=== PATIENT | female | born 1950 | race Caucasian/White ===

== ENCOUNTER → 2017-04-21 | Outpatient (CLI) | payer OTHER ==
[~2017-04-21] MED LIST: CALC-354 PO; KRIL1000 PO; LEVO75TA5 PO; MISCCAP8 PO; MISCCAP80 PO; MULTTAB58 PO
--- NOTE | 2017-04-21 17:51 | DIAGNOSTIC IMAGING REPORT ---
ABDOMINAL ULTRASOUND, RIGHT UPPER QUADRANT HISTORY: Epigastric pain. COMPARISON: None. FINDINGS: Liver morphology is normal. Several echogenic hepatic lesions are noted. These measure up to 9 mm. There is a 1.5 cm cyst with a few septations within the liver. There is no biliary ductal dilatation. The common bile duct measures 3 mm in caliber. The gallbladder is contracted and suboptimally assessed but no gallstones are identified. There is no gallbladder wall thickening. The pancreatic body is normal. There is no hydronephrosis. IMPRESSION: 1. No gallstones or biliary ductal dilatation identified. Partially contracted gallbladder. 2. Several small echogenic hepatic lesions measuring up to 9 mm. These favor hemangiomas and in the absence of known malignancy are likely benign. A liver protocol CT is recommended for confirmation. Electronically signed by: Travon Chavez M.D. 04/21/2017 5:50 PM Dictated Date/Time: 04/21/2017 5:44 PM
== END ==
LOC: C.ULTR 16:49
PROVIDERS: ATTEND Student in an Organized Health Care Education/Training Program
DX: R10.13 Epigastric pain (principal)

== ENCOUNTER → 2017-05-07 | Outpatient (CLI) | payer OTHER ==
[2017-05-07 17:06] LABS: BASO % 0.3 %; BASO ABS # 0.02 K/uL (0-0.2); EOS % 0.7 %; IG% 0.3 %; LYMPH % 21.5 %; LYMPH ABS # 1.58 K/uL (1.2-3.4); MEAN CELL VOLUME 89.1 fL (80-100); MEAN CORPUSCULAR HEMOGLOBIN 29.2 pg (25-34); MEAN PLATELET VOLUME 9.8 fL (7.4-10.4); MONO % 6.1 %; NEUT % 71.1 %; PLATELET COUNT 273 K/uL (130-400); RED BLOOD COUNT 4.49 M/uL (4.2-5.4); WHITE BLOOD COUNT 7.35 K/uL (4.8-10.8)
[2017-05-07 17:09] LABS: COMPLETE YES; MEAN CORPUSCULAR HGB CONC 32.8 g/dl (32-36)
== END | disposition home or self-care (01) ==
LOC: C.LAB 16:45
PROVIDERS: ATTEND Family Medicine Hospice and Palliative Medicine
DX: K27.9 Peptic ulcer, site unspecified, unspecified as acute or chronic, without hemorrhage or perforation (principal)

== ENCOUNTER → 2017-06-23 | Outpatient (CLI) | payer OTHER ==
--- NOTE | 2017-06-23 15:19 | MAMMOGRAPHY REPORT ---
BILATERAL DIGITAL SCREENING MAMMOGRAM WITH CAD: 06/23/2017 CLINICAL HISTORY: Routine screening. Patient has no complaints. TECHNIQUE: Bilateral CC and MLO views were obtained. Current study was also evaluated with a Computer Aided Detection (CAD) system. COMPARISON: Comparison is made to exams dated: 05/28/2016 mammogram, 05/27/2015 mammogram, 05/22/2014 ma mmogram, 12/12/2013 mammogram, 05/30/2013 mammogram, and 05/12/2013 mammogram - [facility]. BREAST COMPOSITION: There are scattered areas of fibroglandular density in both breasts. FINDINGS: There is stable asymmetry in the medial right breast. Stable asymmetries in the superior l eft breast on the MLO view. No new suspicious mass, architectural distortion or cluster of microcalc ifications is seen. IMPRESSION: ACR BI-RADS CATEGORY 1: NEGATIVE There is no mammographic evidence of malignancy. A 1 year screening mammogram is recommended. The pa tient will receive written notification of the results. Approximately 10% of breast cancers are not detected with mammography. A negative mammographic report should not delay biopsy if a clinically suggestive mass is present. Bessie Land M.D. ay/:06/23/2017 12:44:21 Property Management Accountant: Jenifer LOVE)(Gage), [facility] letter sent: Normal 1/2 BI-RADS Code: ACR BI-RADS Category 1: Negative
== END | disposition home or self-care (01) ==
LOC: C.MAMM 11:17
PROVIDERS: ATTEND Family Medicine
DX: Z12.31 Encounter for screening mammogram for malignant neoplasm of breast (principal)

== ENCOUNTER → 2017-08-13 | Outpatient (CLI) | payer OTHER | END | disposition home or self-care (01) | LOC: C.LAB1850 13:58 | PROVIDERS: ATTEND Internal Medicine Infectious Disease | DX: Z00.00 Encounter for general adult medical examination without abnormal findings (principal) ==

== ENCOUNTER 2017-10-11 20:46 | Emergency (ER) | payer OTHER ==
[~2017-10-11] VITALS: Ht 165.1 cm; Wt 79.7 kg
[2017-10-11 20:50] VITALS: TEMP 36.5; Ht 165.1 cm; Wt 79.7 kg
[2017-10-11] MEDS ORDERED: SODIUM CHLORIDE 0.9% 1000ML 1,000 ML IV STA (21:15)
[2017-10-11 21:22] VITALS: O2SAT 96
[2017-10-11 21:43] LABS: BASO % 0.4 %; BASO ABS # 0.03 K/uL (0-0.2); COMPLETE YES; EOS % 1.4 %; HEMATOCRIT 41.6 % (37-47); IG% 0.1 %; LYMPH ABS # 1.96 K/uL (1.2-3.4); MEAN CELL VOLUME 89.7 fL (80-100); MEAN CORPUSCULAR HEMOGLOBIN 29.1 pg (25-34); MEAN CORPUSCULAR HGB CONC 32.5 g/dl (32-36); MEAN PLATELET VOLUME 9.9 fL (7.4-10.4); MONO % 5.9 %; NEUT % 65.2 %; PLATELET COUNT 264 K/uL (130-400); RED BLOOD COUNT 4.64 M/uL (4.2-5.4); WHITE BLOOD COUNT 7.25 K/uL (4.8-10.8)
[2017-10-11 22:00] LABS: PARTIAL THROMBOPLASTIN RATIO 1.1; PROTHROMBIN TIME (PATIENT) 10.3 SECONDS (9.0-12.0)
[2017-10-11 22:06] LABS: AST/SGOT 18 U/L (15-37); BLOOD UREA NITROGEN 16 mg/dl (7-18); BUN/CREATININE RATIO 17.5 (10-20); CALCIUM 9.2 mg/dl (8.5-10.1); CARBON DIOXIDE 24 mmol/L (21-32); CHLORIDE 107 mmol/L (98-107); CREATININE 0.88 mg/dl (0.60-1.20); GLUCOSE 78 mg/dl (70-99); MAGNESIUM 2.3 mg/dl (1.8-2.4); SODIUM 141 mmol/L (136-145)
[2017-10-11 22:17] LABS: ALKALINE PHOSPHATASE 106 U/L (45-117); ALT/SGPT 24 U/L (12-78); CKMB/CK RATIO 1.6 (0-3.0)
[2017-10-11] MEDS ORDERED: LEVO75TA5 PO (22:54)
[2017-10-11] MEDS ORDERED: MULTTAB58 PO (22:55)
[2017-10-11] MEDS ORDERED: CALC-354 PO (22:56)
[2017-10-11] MEDS ORDERED: MISCCAP80 PO (22:57)
[2017-10-11] MEDS ORDERED: KRIL1000 PO (22:58)
[2017-10-11] MEDS ORDERED: MISCCAP8 PO (23:00)
[2017-10-11 23:51] VITALS: BP 120/75; PULSE 74; O2SAT 98
--- NOTE | 2017-10-12 03:26 | EMERGENCY ROOM VISIT NOTE ---
History Report prepared by Julio: Lucía Leach Under the Supervision of: Dr. Wilder Stafford M.D. First contact with patient: 21:09 Chief Complaint: IRREGULAR HEARTBEAT Stated Complaint: REACTION TO BOWEL PREP, IRREGULAR HEARTBEAT Nursing Triage Summary: see triage note History of Present Illness The patient is a 67 year old female who presents to the Emergency Room with complaints of intermittent heart fluttering beginning 5 hours ago. The patient started doing prep for her colonoscopy which is tomorrow about 5 hours ago. She notes that she got to the Suprep when she started to have palpitations. The patient notes abdominal pain and feeling lightheaded which lasted about an hour. Presently, the patient has a dull headache. The patient has a history of having palpitations when she drinks caffeine. She notes having diarrhea after drinking her prep. The patient has a history of a hysterectomy, tonsillectomy, Lyme's disease, and Lyme carditis. Pt denies LOC, fevers, chills, diaphoresis, visual changes, neck pain, chest pain, breathing difficulties, nausea, vomiting , back pain, melena, hematochezia, urinary symptoms, numbness, weakness, lymphadenopathy, rash, or other complaints. Source of History: patient Onset: 5 hours ago Position: other (heart ) Quality: other (fluttering) Timing: intermittent Associated Symptoms: + headache, + abdominal pain, + diarrhea Review of Systems See HPI for pertinent positives and negatives. A total of ten systems were reviewed and were otherwise negative. Past Medical & Surgical Medical Problems: (1) Lyme carditis (2) Lyme disease (3) S/P hysterectomy Surgical Problems: (1) S/P tonsillectomy Family History Patient reports no known family medical history. Social History Smoking Status: Never Smoker Smokeless Tobacco Use: No Alcohol Use: none Drug Use: none Marital Status: Housing Status: lives with significant other Occupation Status: unemployed Current/Historical Medications Scheduled Calcium Carbonate-Cholecalcife (Caltrate 600+D), 1 TAB PO BID Krill Oil (Krill Oil), 350 MG PO DAILY Levothyroxine Sodium (Levothyroxine Sodium), 75 MCG PO DAILY Misc Natural Products (Tart Marr Advanced), 1,200 MG PO DAILY Multiple Vitamin (Multivitamin), 1 TAB PO DAILY Probiotic Product (Probiotic), 248 MG PO DAILY Allergies Uncoded Allergies: SULFA (Allergy, Mild, rash, 10/11/17) Physical Exam Vital Signs Date Time Temp Pulse Resp B/P (MAP) Pulse Ox O2 Delivery O2 Flow Rate FiO2 10/11/17 23:51 74 18 120/75 98 10/11/17 23:00 71 18 123/73 98 Room Air 10/11/17 22:00 68 18 135/75 98 Room Air 10/11/17 21:25 79 10/11/17 21:22 96 Room Air 10/11/17 20:50 36.5 86 18 191/91 99 Room Air Physical Exam GENERAL: Awake, alert, well-appearing, in no distress HENT: Normocephalic, atraumatic. Oropharynx unremarkable. EYES: Normal conjunctiva. Sclera non-icteric. NECK: Supple. No nuchal rigidity. FROM. No JVD. RESPIRATORY: Clear to auscultation. CARDIAC: Regular rate, normal rhythm. Extremities warm and well perfused. Pulses equal. ABDOMEN: Soft, non-distended. No tenderness to palpation. No rebound or guarding. No masses. RECTAL: Deferred. MUSCULOSKELETAL: Chest examination reveals no tenderness. The back is symmetrical on inspection without obvious abnormality. There is no CVA tenderness to palpation. No joint edema. LOWER EXTREMITIES: Calves are equal size bilaterally and non-tender. No edema. No discoloration. NEURO: Normal sensorium. No sensory or motor deficits noted. SKIN: No rash or jaundice noted. Medical Decision & Procedures Laboratory Results 10/11/17 21:31 Red Blood Count 4.64, Mean Corpuscular Volume 89.7, Mean Corpuscular Hemoglobin 29.1, Mean Corpuscular Hemoglobin Concent 32.5, Mean Platelet Volume 9.9, Neutrophils (%) (Auto) 65.2, Lymphocytes (%) (Auto) 27.0, Monocytes (%) (Auto) 5.9, Eosinophils (%) (Auto) 1.4, Basophils (%) (Auto) 0.4, Neutrophils # (Auto) 4.72, Lymphocytes # (Auto) 1.96, Monocytes # (Auto) 0.43, Eosinophils # (Auto) 0.10, Basophils # (Auto) 0.03 10/11/17 21:31 Test 10/11/17 21:31 White Blood Count 7.25 K/uL (4.8-10.8) Red Blood Count 4.64 M/uL (4.2-5.4) Hemoglobin 13.5 g/dL (12.0-16.0) Hematocrit 41.6 % (37-47) Mean Corpuscular Volume 89.7 fL (80-100) Mean Corpuscular Hemoglobin 29.1 pg (25-34) Mean Corpuscular Hemoglobin Concent 32.5 g/dl (32-36) Platelet Count 264 K/uL (130-400) Mean Platelet Volume 9.9 fL (7.4-10.4) Neutrophils (%) (Auto) 65.2 % Lymphocytes (%) (Auto) 27.0 % Monocytes (%) (Auto) 5.9 % Eosinophils (%) (Auto) 1.4 % Basophils (%) (Auto) 0.4 % Neutrophils # (Auto) 4.72 K/uL (1.4-6.5) Lymphocytes # (Auto) 1.96 K/uL (1.2-3.4) Monocytes # (Auto) 0.43 K/uL (0.11-0.59) Eosinophils # (Auto) 0.10 K/uL (0-0.5) Basophils # (Auto) 0.03 K/uL (0-0.2) RDW Standard Deviation 48.7 fL (36.4-46.3) RDW Coefficient of Variation 14.9 % (11.5-14.5) Immature Granulocyte % (Auto) 0.1 % Immature Granulocyte # (Auto) 0.01 K/uL (0.00-0.02) Prothrombin Time 10.3 SECONDS (9.0-12.0) Prothromb Time International Ratio 1.0 (0.9-1.1) Activated Partial Thromboplast Time 29.0 SECONDS (21.0-31.0) Partial Thromboplastin Ratio 1.1 Anion Gap 9.0 mmol/L (3-11) Est Creatinine Clear Calc Drug Dose 62.9 ml/min Estimated GFR () 77.7 Estimated GFR (Non- 67.0 BUN/Creatinine Ratio 17.5 (10-20) Calcium Level 9.2 mg/dl (8.5-10.1) Magnesium Level 2.3 mg/dl (1.8-2.4) Total Bilirubin 0.4 mg/dl (0.2-1) Direct Bilirubin 0.1 mg/dl (0-0.2) Aspartate Amino Transf (AST/SGOT) 18 U/L (15-37) Alanine Aminotransferase (ALT/SGPT) 24 U/L (12-78) Alkaline Phosphatase 106 U/L (45-117) Total Creatine Kinase 115 U/L (26-192) Creatine Kinase MB 1.8 ng/ml (0.5-3.6) Creatine Kinase MB Ratio 1.6 (0-3.0) Troponin I < 0.015 ng/ml (0-0.045) Total Protein 7.6 gm/dl (6.4-8.2) Albumin 4.1 gm/dl (3.4-5.0) Thyroid Stimulating Hormone (TSH) 1.840 uIu/ml (0.300-4.500) Laboratory results reviewed by me Medications Administered Medications (Trade) Dose Ordered Sig/Hira Route Start Time Stop Time Status Last Admin Dose Admin Sodium Chloride 1,000 ml @ 125 mls/hr Q8H STAT IV 10/11/17 21:15 10/12/17 00:04 DC 10/11/17 21:50 125 MLS/HR ECG Indication: palpitations Rate (beats per minute): 77 Rhythm: sinus with SA Findings: no acute ischemic change, no ectopy ED Course 2114: Ordered Sodium Chloride 1000 ml @ 125 mls/hr IV. 0: The patient was evaluated in room B2. A complete history and physical exam was performed. 2322: I updated the patient on her test results she is resting comfortably. 2333: I reevaluated the patient. Discussed results and discharge instructions: She verbalized understanding and agreement. The patient is ready for discharge. Medical Decision Triage Nursing notes reviewed. The patient's presentation and history were concerning for palpitations. Etiologies such as ectopy, cardiac dysrhythmia, electrolyte abnormality, thyroid dysfunction, pulmonary embolism, infection, gastrointestinal, as well as others were entertained. The patient was evaluated. Clinically she was doing well. She had a normal ECG. Monitoring did not reveal any significant abnormalities. She notes more significant symptoms prior to ED arrival. Her blood work was unremarkable. She was monitored for an extended period and had no dysrhythmia or ectopy issues noted. The patient was feeling much better on reassessment and approved felt basically asymptomatic. I discussed conservative management with the patient. She is concerned about continuing her prep and given the timeframe she would not be able to complete this before her scheduled procedure in the morning. I told her to hold and contact her primary office as well as her cloth handler for further direction regarding the current issue. I gave my usual and customary discussion regarding this issue. By the evaluation outlined above other emergent etiologies such as those listed in the differential, as well as others, were deemed relatively unlikely. The patient was educated about the findings as listed above. All questions were answered and the patient was pleased with the treatment. Return instructions were outlined and the patient was discharged in stable condition. The patient was referred to her PCP and GI for follow-up for a recheck of the current condition. Medication Reconcilliation Current Medication List: was personally reviewed by me Blood Pressure Screening Patient's blood pressure: Normal blood pressure Impression Primary Impression: Palpitations Scribe Attestation The scribe's documentation has been prepared under my direction and personally reviewed by me in its entirety. I confirm that the note above accurately reflects all work, treatment, procedures, and medical decision making performed by me. Departure Information Dispostion Home / Self-Care Referrals Joy Casneco M.D. (PCP) Forms HOME CARE DOCUMENTATION FORM, IMPORTANT VISIT INFORMATION Patient Instructions My [facility] Additional Instructions Hold any gastroenterology prep and contact your specialist in the morning for further direction. Rest and drink plenty of fluids as tolerated. Continue current medications. Resume normal activities once your symptoms resolve. Eat a heart healthy, low fat, low cholesterol diet. Return to the ER immediately for passing out, chest pain, abdominal pain, vomiting, fevers, difficulty breathing, worsening of your condition, or as needed. Follow up with your primary physician in one to 2 days for a recheck of your current condition.
== END 2017-10-11 23:52 | disposition home or self-care (01) ==
LOC: C.EDB 20:47
DX: R00.2 Palpitations (principal); Z90.710 Acquired absence of both cervix and uterus; Z90.89 Acquired absence of other organs

== ENCOUNTER → 2018-07-07 | Outpatient (CLI) | payer OTHER ==
[2018-07-07 13:01] LABS: BASO % 0.3 %; BASO ABS # 0.02 K/uL (0-0.2); EOS ABS # 0.12 K/uL (0-0.5); HEMOGLOBIN 13.6 g/dL (12.0-16.0); LYMPH ABS # 1.66 K/uL (1.2-3.4); MEAN CELL VOLUME 90.7 fL (80-100); MEAN CORPUSCULAR HEMOGLOBIN 28.7 pg (25-34); MEAN CORPUSCULAR HGB CONC 31.6 g/dl (32-36); MEAN PLATELET VOLUME 10.5 fL (7.4-10.4); MONO % 4.9 %; MONO ABS # 0.29 K/uL (0.11-0.59); NEUT % 64.8 %; NEUT ABS # 3.83 K/uL (1.4-6.5); PLATELET COUNT 285 K/uL (130-400); RED CELL DISTRIBUTION WIDTH CV 14.7 % (11.5-14.5); WHITE BLOOD COUNT 5.92 K/uL (4.8-10.8)
== END | disposition home or self-care (01) ==
LOC: C.LAB1850 11:52
PROVIDERS: ATTEND Internal Medicine Infectious Disease
DX: A69.20 Lyme disease, unspecified (principal)

== ENCOUNTER 2025-06-28 14:14 | Observation (INO) ==
[2025-06-28 16:03] LABS: Hematocrit (blood only) 39.7 % (37.0-47.0); Hemoglobin 13.0 g/dl (12.0-16.0); Immature Granulocytes # (auto) 0.03 K/uL (0.01-0.20); Immature Granulocytes % (auto) 0.3 %; Mean Corpuscular Hemoglobin 29.1 pg (25.0-34.0); Mean Corpuscular Volume 89.0 fL (80.0-100.0); Platelet Count 293 K/uL (130-400); RDW Standard Deviation 45.1 fL (36.4-46.3); Red Blood Count 4.46 M/uL (4.20-5.40); White Blood Count 10.18 K/ul (4.8-10.8)
[2025-06-28 16:06] LABS: Appearance Urine Clear (Clear); Bacteria Urine Automated None Seen (None Seen); Cast Urine Automated 0-2 /lpf (0-2); Epithelial Cell Urine Auto 0-2 /hpf (0-2); Glucose Urine UA Negative (Negative); RBC Urine Automated 0-2 /hpf (0-2)
[2025-06-28 16:20] LABS: Alanine Aminotransferase 7.0 U/L (7-52); Albumin Globulin Ratio 1.3 (0.9-2); Alkaline Phosphatase 120.0 U/L (34-104); Anion Gap 9.0 (3-11); Bilirubin,Total 0.5 mg/dl (0.2-1.0); Blood Urea Nitrogen 26.0 mg/dl (6-23); Calcium 10.2 mg/dl (8.6-10.3); Carbon Dioxide 24.0 mmol/L (21-32); Chloride 110.0 mmol/L (98-107); Creatinine Clr Calc Pharmacy 23.5 ml/min; Globulin 3.5 gm/dl (2.5-4.0); Glucose 103.0 mg/dl (70-99(Fasting)); Potassium 4.4 mmol/L (3.5-5.1); Sodium 143.0 mmol/L (136-145); Total Protein 7.9 gm/dl (6.0-8.3)
--- NOTE | 2025-06-28 16:40 | Emergency Department Note ---
History of Present Illness General Chief complaint: Illness Stated complaint: NAUSEA ABNORNAL WEIGHT LSS DEHYDRATION Time Seen by Provider: 06/28/25 16:15 History of Present Illness Provider complaint: Nausea Onset (ago): week(s) 3 Maximum Pain Intensity: 5 74-year-old female presents emergency department for nausea. Patient reports she has been having nausea for the last 3 weeks. She denies any vomiting. She reports constipation no diarrhea. She reports some mild diffuse abdominal pain. No fevers. No chest pain or difficulty breathing. Patient reports she was in the emergency department last week and got some fluids and Zofran. She states that Zofran helped her nausea but made her more constipated. No hematuria dysuria melena or hematochezia. Home Medications Medication Instructions Recorded Confirmed Type calcium 600 mg (as carbonate)-vit 0 tab PO BID 09/13/18 06/28/25 History D3 20 mcg (800 unit) chewable tablet (Caltrate plus D) lactobacillus combination no.4 3 3,000 mmu cells PO QAM 09/13/18 06/28/25 History billion cell capsule (Probiotic) levothyroxine 75 mcg capsule 75 mcg PO QAM 09/13/18 06/28/25 History multivitamin 1 tab PO QAM PRN during winter 09/13/18 06/28/25 History hydroxyzine HCl 25 mg tablet 25 mg PO TID PRN anxiety #14 tabs 10/21/20 06/28/25 Rx doxycycline monohydrate 100 mg 100 mg PO BID 03/19/24 06/28/25 History capsule fluoxetine 20 mg capsule (Prozac) 20 mg PO DAILY 06/28/25 06/28/25 History losartan 25 mg tablet 12.5 mg PO HS 06/28/25 06/28/25 History omeprazole 40 mg capsule,delayed 40 mg PO BID 06/28/25 06/28/25 History release paroxetine HCl 20 mg tablet (Paxil) 20 mg PO DAILY 06/28/25 06/28/25 History Allergies Allergy/AdvReac Type Severity Reaction Status Date / Time sulfamethoxazole Allergy Intermediate BLOOD IN Verified 03/19/24 15:33 [From Bactrim] URINE/HEADACHE trimethoprim [From Bactrim] Allergy Intermediate BLOOD IN Verified 03/19/24 15:33 URINE/HEADACHE Past Med/Surg History Problem List (Updated 06/28/25 @ 19:17 by Christian Paris MD) Generalized anxiety disorder (Chronic) Hypothyroidism (Chronic) Hypertension (Chronic) Pyuria (Acute) Intractable nausea (Acute) Acute kidney injury (Acute) Medical History Melanoma Lyme carditis Lyme disease Prediabetes History of skin cancer TOP OF RIGHT FOOT History of anemia Endometriosis Surgical History History of breast biopsy RADIAL SCARRING H/O skin graft SKIN CANCER AND LYMPH NODES REMOVED History of bilateral tubal ligation History of total knee replacement LEFT History of esophagogastroduodenoscopy (EGD) History of colonoscopy History of total abdominal hysterectomy and bilateral salpingo-oophorectomy History of appendectomy History of tooth extraction History of tonsillectomy History of adenoidectomy History of cataract surgery RT Family History (Updated 06/28/25 @ 18:56 by Brandon Arriaga DO) Mother Melanoma Other Family history non-contributory No family history of adverse response to anesthesia Social History Smoking Status: Never smoker Second Hand Exposure: No; Do You Dip or Chew Tobacco: No; Hx Alcohol Use: No Hx Substance Use: No Preferred Language: Italian Communication Ability: Effective International Student Counselor Required: No Beliefs That Will Affect Care: None Current Living Situation: Spouse Feels Safe at Home: Yes Assistive Devices: Glasses Physical Exam Vital Signs Vital Signs - 24 hr 06/28/25 14:18 06/28/25 16:43 Temperature 36.2 C L Temperature Source Temporal Artery Scan Pulse Rate 84 68 Respiratory Rate 20 Respiratory Effort / Characteristics Non-Labored Respiratory Depth Normal Blood Pressure 165/82 H Blood Pressure Mean 109 Pulse Oximetry 96 Oxygen Delivery Method Room Air Sepsis Recent Fever Within 48 Hours No Sepsis New/Unexplained Change in Mental Status No Sepsis Action Taken by Nursing No Action Required Physical Exam GENERAL: oriented to person, place, and time. appears well-developed and well- nourished. HENT: Exam performed. - Head: Normocephalic and atraumatic. EYES: Conjunctivae and EOM are normal. Right eye exhibits no discharge. Left eye exhibits no discharge. No scleral icterus. NECK: Normal range of motion. Neck supple. No JVD present. CV: Normal rate, regular rhythm, normal heart sounds and intact distal pulses. There is no peripheral edema. Palpable radial pulses bue. PULM/CHEST: Effort normal and breath sounds normal. No respiratory distress. No stridor. no wheezes. no rales. ABD: The abdomen is soft. There is no tenderness. NEURO: Motor and sensation grossly intact. SKIN: Skin is warm and dry. He is not diaphoretic. PSYCH: normal mood and affect. Behavior is normal. Judgment and thought content normal. Course Course 1615: The patient was evaluated in room A12. A complete history and physical exam was performed Cardiac monitoring: An order was placed for continuous cardiac monitoring. The monitor shows a rate of 70 with sinus rhythm interpreted by me Patient requesting nausea medication but not Zofran stating that makes her constipated. 1740: Vital signs stable. Imaging is unremarkable. Labs are significant for worsening creatinine up to 2.04. Patient will be admitted to the hospitalist team for LJ. Administered Medications Discontinued Medications Diphenhydramine HCl (Diphenhydramine 50 Mg/Ml Vial) 25 mg IV NOW STA Stop: 06/28/25 16:33 Last Admin: 06/28/25 17:21 Dose: 25 mg Documented By: TRISHM Sodium Chloride (Nss) 1,000 mls @ 999 mls/hr IV .Q1H1M ONE Stop: 06/28/25 17:19 Last Infusion: 06/28/25 18:59 Dose: Infused Documented By: Admin: 06/28/25 17:21 Dose: 999 mls/hr Documented By: TRISHM Labetalol HCl (Labetalol Hcl Iv 5 Mg/Ml 20ml) 10 mg IV NOW ONE Stop: 06/28/25 18:49 Last Admin: 06/28/25 19:05 Dose: 10 mg Documented By: DANN Metoclopramide HCl (Metoclopramide Hcl Inj 5 Mg/Ml 2 Ml Vial) 5 mg IV ONE ONE Stop: 06/28/25 16:33 Last Admin: 06/28/25 17:21 Dose: 5 mg Documented By: TDM Ondansetron HCl (Ondansetron Inj 2 Mg/Ml 2 Ml Vial) 4 mg IV NOW STA Stop: 06/28/25 16:20 Last Admin: 06/28/25 17:25 Dose: Not Given Documented By: TDM Medical Decision Making Medical Records Attestation: I reviewed the patient's medical records. Medical records reviewed. Patient was seen in the emergency department 9 days ago. During that visit the patient's white blood cell count was normal high- sensitivity troponin was normal creatinine was 1.78 which does appear to be double her baseline urinalysis was unremarkable. No imaging was conducted. Patient was given IV fluids and Zofran and discharged home. Laboratory Data Attestation: I reviewed the patient's lab results. 06/28/25 15:45 06/28/25 15:45 Lab Results 06/28/25 Range/Units 15:45 WBC 10.18 (4.8-10.8) K/ul RBC 4.46 (4.20-5.40) M/uL Hgb 13.0 (12.0-16.0) g/dl Hct 39.7 (37.0-47.0) % MCV 89.0 (80.0-100.0) fL MCH 29.1 (25.0-34.0) pg MCHC 32.7 (32.0-36.0) g/dL RDW Std Deviation 45.1 (36.4-46.3) fL RDW Coeff of Slime 13.8 (11.5-14.5) % Plt Count 293 (130-400) K/uL MPV 10.4 (9.4-12.4) fL Immature Gran % (Auto) 0.3 % Neut % (Auto) 81.8 % Lymph % (Auto) 12.2 % [place] % (Auto) 4.6 % Eos % (Auto) 0.8 % Baso % (Auto) 0.3 % Neut # (Auto) 8.33 H (1.40-6.50) K/uL Lymph # (Auto) 1.24 (1.20-3.40) K/uL [place] # (Auto) 0.47 (0.11-0.59) K/uL Eos # (Auto) 0.08 (0.00-0.50) K/uL Baso # (Auto) 0.03 (0.00-0.20) K/uL Immature Gran # (Auto) 0.03 (0.01-0.20) K/uL Sodium 143 (136-145) mmol/L Potassium 4.4 (3.5-5.1) mmol/L Chloride 110 H (98-107) mmol/L Carbon Dioxide 24 (21-32) mmol/L Anion Gap 9 (3-11) BUN 26 H (6-23) mg/dl Creatinine 2.04 H (0.6-1.2) mg/dl Est Cr Clr Drug Dosing 23.5 ml/min eGFR 24.82 BUN/Creatinine Ratio 12.7 (10-20) Glucose 103 H (70-99(Fasting)) mg/dl Calcium 10.2 (8.6-10.3) mg/dl Magnesium 1.8 (1.7-2.4) mg/dl Total Bilirubin 0.5 (0.2-1.0) mg/dl AST 11 L (13-39) U/L ALT 7 (7-52) U/L Alkaline Phosphatase 120 H (34-104) U/L Total Protein 7.9 (6.0-8.3) gm/dl Albumin 4.4 (3.4-5.0) gm/dl Globulin 3.5 (2.5-4.0) gm/dl Albumin/Globulin Ratio 1.3 (0.9-2) Urine Color Yellow Urine Appearance Clear (Clear) Urine pH 6.0 (4.5-7.5) Ur Specific [place] 1.010 (1.000-1.030) Urine Protein Trace H (Negative) Urine Glucose (UA) Negative (Negative) Urine Ketones Negative (Negative) Urine Blood Negative (Negative) Urine Nitrite Negative (Negative) Urine Bilirubin Negative (Negative) Urine Urobilinogen Negative (Negative) Ur Leukocyte Esterase Trace H (Negative) Urine WBC (Auto) 6-10 H (0-5) /hpf Urine RBC (Auto) 0-2 (0-2) /hpf U Hyaline Cast (Auto) 0-2 (0-2) /lpf U Epithel Cells (Auto) 0-2 (0-2) /hpf Urine Bacteria (Auto) None Seen (None Seen) Urine Comment Imaging Data Radiologist's Impression: Abdomen/Pelvis CT 06/28/25 16:22 EXAMINATION: Abdomen and pelvis CT without CLINICAL HISTORY: Patient states I was in last I believe for fluids. I have had weight loss, no appetite. Denies abdominal pain. PRIORS: None TECHNIQUE: Contiguous axial images were obtained through the abdomen and pelvis without the use of intravenous contrast. Sagittal and coronal reformations are supplied. FINDINGS: A trace pericardial effusion is present in the [id number]. No abnormality in the lung bases. Evaluation of solid organs is limited without the use of intravenous contrast. Allowing for this, the noncontrast enhanced liver shows multiple scattered low-attenuation lesions, not further characterized. The gallbladder, pancreas, spleen, under distended stomach, adrenals, aorta and IVC are morphologically unremarkable. Moderate atherosclerotic disease of the abdominal aorta. Kidneys are symmetric with no obstructing calculus or hydronephrosis. Urinary bladder distends normally. No bowel obstruction. Large amount of formed stool in the colon. Mild diverticulosis of the descending colon. No ascites, adenopathy or extraluminal gas. Uterus is not identified. In bone windows, moderate osseous demineralization with moderate to advanced facet hypertrophic changes at L3-L4 through L5-S1. IMPRESSION: 1. No CT evidence of an acute abdominal or pelvic abnormality. 2. Trace pericardial effusion at the edge of the [id number]. 3. Mild descending colon diverticulosis. Electronically signed by Lainey Brower 06-28-2025 5:33 PM ECG Data Attestation: I personally reviewed and interpreted this ECG as follows: Rate (beats per minute): 70 Rhythm: + normal sinus ECG Intervals/blocks: + Normal QRS, + Normal KS and + Normal QT-c ECG ST segments: + Normal ST segments MDM Narrative 1615: The patient was evaluated in room A12. A complete history and physical exam was performed Cardiac monitoring: An order was placed for continuous cardiac monitoring. The monitor shows a rate of 70 with sinus rhythm interpreted by me Patient requesting nausea medication but not Zofran stating that makes her constipated. 1740: Vital signs stable. Imaging is unremarkable. Labs are significant for worsening creatinine up to 2.04. Patient will be admitted to the hospitalist team for LJ. Impression & Plan Acute kidney injury Discharge Plan Visit Data Chief Complaint: Illness Stated Complaint: NAUSEA ABNORNAL WEIGHT LSS DEHYDRATION ED Provider: Christian Paris Discharge Problem: Acute kidney injury Patient Disposition: Being Evaluated by Hospitalist Condition: Fair
[2025-06-28 17:12] LABS: Magnesium 1.8 mg/dl (1.7-2.4)
[2025-06-28] MEDS: SODIUM CHLORIDE 0.9% 1,000 ML IV ONE (17:21)
[2025-06-28] MEDS: METOCLOPRAMIDE HCL INJ 5 MG/ML 2 ML VIAL IV ONE (17:21)
[2025-06-28] MEDS: diphenhydrAMINE 50 MG/ML VIAL IV STA (17:21)
[2025-06-28] MEDS: ONDANSETRON INJ 2 MG/ML 2 ML VIAL IV STA (17:25)
--- NOTE | 2025-06-28 17:33 | CT Scan Report ---
EXAMINATION: Abdomen and pelvis CT without CLINICAL HISTORY: Patient states I was in last I believe for fluids. I have had weight loss, no appetite. Denies abdominal pain. PRIORS: None TECHNIQUE: Contiguous axial images were obtained through the abdomen and pelvis without the use of intravenous contrast. Sagittal and coronal reformations are supplied. FINDINGS: A trace pericardial effusion is present in the [id number]. No abnormality in the lung bases. Evaluation of solid organs is limited without the use of intravenous contrast. Allowing for this, the noncontrast enhanced liver shows multiple scattered low-attenuation lesions, not further characterized. The gallbladder, pancreas, spleen, under distended stomach, adrenals, aorta and IVC are morphologically unremarkable. Moderate atherosclerotic disease of the abdominal aorta. Kidneys are symmetric with no obstructing calculus or hydronephrosis. Urinary bladder distends normally. No bowel obstruction. Large amount of formed stool in the colon. Mild diverticulosis of the descending colon. No ascites, adenopathy or extraluminal gas. Uterus is not identified. In bone windows, moderate osseous demineralization with moderate to advanced facet hypertrophic changes at L3-L4 through L5-S1. IMPRESSION: 1. No CT evidence of an acute abdominal or pelvic abnormality. 2. Trace pericardial effusion at the edge of the [id number]. 3. Mild descending colon diverticulosis. Electronically signed by Lainey Brower 06-28-2025 5:33 PM
[2025-06-28] MEDS: LABETALOL HCL IV 5 MG/ML 20ML IV ONE (19:05)
--- NOTE | 2025-06-28 19:05 | History & Physical Report ---
Date of Service June 28, 2025 Assessment & Plan (1) Acute kidney injury: (2) Intractable nausea: (3) Pyuria: Plan In summary this is a 74-year-old female who presents with persistent nausea, unintentional weight loss consequential of poor oral intake, and early satiety admitted for progressive creatinine rise concerning for an acute kidney injury #Acute kidney injury Baseline normal renal function, presents with progressive elevation with current measure 2.07; currently nonoliguric; no notable electrolyte or acid-base derangements on initial laboratory assessment; initial urinalysis is relatively unremarkable except for noted pyuria without evidence of infection nor associated symptoms; unclear if this is truly acute, PTH is pending to determine if there is a degree of chronicity associated with her kidney injury; additional urine studies have been ordered including urine osmolality and random sodium; A1c and TSH are currently pending as well -Nurse to notify attending of UOP below goal of 0.5 mL/kg/hour -Intake and output measures every shift -Follow daily RFP #Persistent nausea with early satiety // Unintentional weight loss Unclear cause at this time; patient does have a history of recurrent melanoma, may be a precipitant cause of an intermittent outlet obstruction though unlikely based on CT scan obtained by the emergency department provider; they do have some scattered stool cumulation throughout the colon which is unusual considering that their poor oral intake, constipation may be playing a particular role; there is a fair amount of substance within the stomach, more than what would be expected considering the patient's oral intake over the past 24 hours which was only a piece of toast in the morning on 06/28 Pending gastric emptying study #Pyuria Present on admission; no associated symptoms, may be associated with the patient's primary cause of their acute kidney injury, though further testing is pending as detailed above; a reflex culture was performed by microbiology, pending at this time #Hypertension Chronic condition; will hold losartan during patient's hospitalization given their acute kidney injury; if persistently hypertensive during the hospitalization, an alternative antihypertensive may need to be initiated #Hypothyroidism Chronic condition; continue home medication DVT PPx: Start heparin 5000 U SQ every 12 hours History of Present Illness Chief Complaint: Persistent nausea, early satiety, unintentional weight loss Primary Care Provider: FEDERICO Cortes Ms. 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 The patient states that this has been ongoing for approximately 4 weeks with an initial rapid progression of their symptoms and now a plateaued state. They endorse difficulty tolerating any oral intake with significant nausea but have had no episodes of emesis. They deny any associated fevers, chills, abdominal distention, increased frequency of eructation or passing flatus. They do note decreased frequency of their bowel movements as this condition has progressed however there has been no change in the consistently of their stool. there is also been no significant change in their urinary frequency nor the quality of their urine. They did recently moved to a new home, which did precede the onset of the symptoms however the patient notes they have moved many times previously without any associated symptoms. This was a local moved, and other than this there has been no recent travel nor established exposures. The patient was started on doxycycline by their PCP the week of 06/24 due to a positive Lyme titer, though this is not available for review today. The patient does note that their symptoms have neither worsened nor improved since initiation of doxycycline. Allergies Allergy/AdvReac Type Severity Reaction Status Date / Time sulfamethoxazole Allergy Intermediate BLOOD IN Verified 03/19/24 15:33 [From Bactrim] URINE/HEADACHE trimethoprim [From Bactrim] Allergy Intermediate BLOOD IN Verified 03/19/24 15:33 URINE/HEADACHE Home Medications Medication Instructions Recorded Confirmed Type calcium 600 mg (as carbonate)-vit 0 tab PO BID 09/13/18 06/28/25 History D3 20 mcg (800 unit) chewable tablet (Caltrate plus D) lactobacillus combination no.4 3 3,000 mmu cells PO QAM 09/13/18 06/28/25 History billion cell capsule (Probiotic) levothyroxine 75 mcg capsule 75 mcg PO QAM 09/13/18 06/28/25 History multivitamin 1 tab PO QAM PRN during winter 09/13/18 06/28/25 History hydroxyzine HCl 25 mg tablet 25 mg PO TID PRN anxiety #14 tabs 10/21/20 06/28/25 Rx doxycycline monohydrate 100 mg 100 mg PO BID 03/19/24 06/28/25 History capsule fluoxetine 20 mg capsule (Prozac) 20 mg PO DAILY 06/28/25 06/28/25 History losartan 25 mg tablet 12.5 mg PO HS 06/28/25 06/28/25 History omeprazole 40 mg capsule,delayed 40 mg PO BID 06/28/25 06/28/25 History release paroxetine HCl 20 mg tablet (Paxil) 20 mg PO DAILY 06/28/25 06/28/25 History Past Med/Surg History Problem List Generalized anxiety disorder (Chronic) Hypothyroidism (Chronic) Hypertension (Chronic) Pyuria (Acute) Intractable nausea (Acute) Acute kidney injury (Acute) Medical History Melanoma Lyme carditis Lyme disease Prediabetes History of skin cancer TOP OF RIGHT FOOT History of anemia Endometriosis Surgical History History of breast biopsy RADIAL SCARRING H/O skin graft SKIN CANCER AND LYMPH NODES REMOVED History of bilateral tubal ligation History of total knee replacement LEFT History of esophagogastroduodenoscopy (EGD) History of colonoscopy History of total abdominal hysterectomy and bilateral salpingo-oophorectomy History of appendectomy History of tooth extraction History of tonsillectomy History of adenoidectomy History of cataract surgery RT Family History (Updated 06/28/25 @ 18:56 by Brandon Arriaga DO) Mother Melanoma Other Family history non-contributory No family history of adverse response to anesthesia Social History Smoking Status: Never smoker Second Hand Exposure: No; Do You Dip or Chew Tobacco: No; Hx Alcohol Use: No Hx Substance Use: No Preferred Language: Occitan Communication Ability: Effective Reproduction Technician Required: No Beliefs That Will Affect Care: None Current Living Situation: Spouse Feels Safe at Home: Yes Assistive Devices: Glasses Review of Systems Review of Systems: Remaining review of constitutional, pulmonary, cardiovascular, gastrointestinal, genitourinary, musculoskeletal, neurologic, and integumentary systems was unremarkable except for pertinent positive and negative findings noted in the HPI above. Physical Exam Physical Exam: General: Adult female in no acute distress Vital Signs: reviewed HEENT: atraumatic, normocephalic; pupils equally round reactive to light; extraocular motions intact; mucous membranes moist Neck: no noted hepatojugular reflux nor flattening of the jugular veins Pulmonary: symmetric chest wall excursion; clear to auscultation bilaterally Cardiovascular: regular rate and rhythm without murmurs, rubs, or gallops; S1 and S2 normal; bilateral radial and posterior tibial pulse 2+; trace bilateral lower extremity edema distal to mid leg Gastrointestinal: soft, nondistended; normal bowel sounds present throughout all quadrants; nontender to superficial and deep palpation throughout the entire abdomen; no notable organomegaly nor peritoneal findings Neurologic: CN II-XII grossly intact; no discernible focal weakness nor paresthesias Skin: normal skin turgor; multiple prior surgical sites for melanoma excision including Mohs procedure on the anterior chest wall Results & Data Results & Data Vital Signs (Past 12 Hours) Vital Signs Temp Pulse Pulse Resp BP BP Pulse Ox 06/28/25 18:15 70 22 162/92 H 97 06/28/25 16:43 68 06/28/25 14:18 36.2 C L 84 20 165/82 H 96 O2 Del Method 06/28/25 18:15 Room Air 06/28/25 16:43 06/28/25 14:18 Room Air Code Status & VTE Plan Code Status DNR/DNI VTE Prophylaxis Plan VTE Prophylaxis will be ordered: Yes PG Care Time/CCT Total # of Minutes Spent Total Time Spent with Patient: Total time spent is greater than 50% in coordination of care (as documented) at patient's floor/unit and/or counseling patient: Coding Level of Care Code 20218 INT INP/OBS CARE 2/55MIN Diagnoses Acute kidney injury N17.9 Intractable nausea R11.0 Pyuria R82.81
[2025-06-28 19:26] LABS: Thyroid Stimulating Hormone 1.362 uIu/ml (0.300-4.500)
[2025-06-28 19:28] LABS: Hemoglobin A1C 5.9 % (4.5-5.6)
[2025-06-28 22:07] LABS: Appearance Urine Clear (Clear); Bacteria Urine Automated None Seen (None Seen); Cast Urine Automated 0-2 /lpf (0-2); Epithelial Cell Urine Auto 0-2 /hpf (0-2); Glucose Urine UA Negative (Negative); RBC Urine Automated 0-2 /hpf (0-2); WBC Urine Automated 0-5 /hpf (0-5)
[2025-06-28] MEDS: HEPARIN SOD 5,000 UNIT/0.5 ML VIAL SQ SCH (22:10)
[2025-06-29] MEDS: LEVOTHYROXINE SODIUM 75 MCG TABLET PO SCH (05:34)
--- NOTE | 2025-06-29 07:26 | Hospitalist Progress Note ---
Date of Service June 29, 2025 Assessment & Plan (1) Constipation: (2) Intractable nausea: (3) Chronic kidney disease (CKD), stage IV (severe): (4) Pyuria: Plan In summary this is a 74-year-old female who presents with persistent nausea, unintentional weight loss consequential of poor oral intake, and early satiety admitted for progressive creatinine rise concerning for an acute kidney injury #Chronic Kidney Injury, Stage IV // Hypertension, uncontrolled most recent previous renal assessment prior to their recent presentations is from 03/2024 with a measure of 0.88; the patient's renal function since the beginning of 06/2025 has been abnormal with a recent trend of 2.09, 2.04 with an associated BUN elevation though not to the degree that would be concerning for uremic symptomatology; the patient's PTH is elevated at 105.6, suggestive of a c hronic component to the patient's kidney disease rather than this being an acute change, which is more consistent with the patient's clinical presentation; the patient has been persistently hypertensive during the hospitalization, they are prescribe losartan was held at the time of admission due to concern of potential acute kidney injury however even the presenting blood pressures are concerning that this is inadequate for treatment of their underlying hypertension, suggesting that there chronic kidney disease is consequential of progressive hypertensive nephrosclerosis - Increase losartan to 50 mg p.o. daily Start atorvastatin 20 mg p.o. daily Discontinue omeprazole Recommend establishing with nephrology upon discharge #Persistent nausea with early satiety // Unintentional weight loss Unclear cause at this time; patient does have a history of recurrent melanoma, may be a precipitant cause of an intermittent outlet obstruction though unlikely based on CT scan obtained by the emergency department provider; they do have some scattered stool accumulation throughout the colon which is unusual considering that their poor oral intake, constipation may be playing a role; there is a fair amount of substance within the stomach, more than what would be expected considering the patient's oral intake over the past 24 hours which was only a piece of toast in the morning on 06/28 Pending gastric emptying study Administer one-time dose oral bisacodyl now followed by nightly 5 mg dose Start Reglan 5 mg p.o. twice daily #Pyuria Present on admission; no associated symptoms, may be associated with the patient's primary cause of their acute kidney injury, though further testing is pending as detailed above; a reflex culture was performed by microbiology, pending at this time #Hypothyroidism Chronic condition; continue home medication DVT PPx: Continue heparin 5000 U SQ every 12 hours Admission and Anticipated Discharge Date Admission Date: June 28, 2025 Anticipated date of discharge: 06/30/25 Subjective Ms. 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 The patient states that this has been ongoing for approximately 4 weeks with an initial rapid progression of their symptoms and now a plateaued state. The patient was started on doxycycline by their PCP the week of 06/24 due to a positive Lyme titer, though this is not available for review today. The patient does note that their symptoms have neither worsened nor improved since initiation of doxycycline. No acute overnight events Review of Systems Review of Systems: Remaining review of constitutional, pulmonary, cardiovascular, gastrointestinal, genitourinary, musculoskeletal, neurologic, and integumentary systems was unre markable except for pertinent positive and negative findings noted in the HPI above. Physical Exam Physical Exam: General: Adult female in no acute distress Vital Signs: reviewed HEENT: atraumatic, normocephalic; pupils equally round reactive to light; extraocular motions intact; mucous membranes moist Neck: no noted hepatojugular reflux nor flattening of the jugular veins Pulmonary: symmetric chest wall excursion; clear to auscultation bilaterally Cardiovascular: regular rate and rhythm without murmurs, rubs, or gallops; S1 and S2 normal; bilateral radial and posterior tibial pulse 2+; trace bilateral lower extremity edema distal to mid leg Gastrointestinal: soft, nondistended; normal bowel sounds present throughout all quadrants; nontender to superficial and deep palpation throughout the entire abdomen; no notable organomegaly nor peritoneal findings Neurologic: CN II-XII grossly intact; no discernible focal weakness nor paresthesias Skin: normal skin turgor; multiple prior surgical sites for melanoma excision including Mohs procedure on the anterior chest wall Results & Data Results & Data Vital Signs (Past 12 Hours) Vital Signs Temp Pulse Pulse Pulse Resp BP BP 06/29/25 07:16 36.4 C L 61 18 156/84 H 06/28/25 22:14 147/83 H 06/28/25 21:48 36.5 C 69 16 176/76 H 06/28/25 21:28 63 18 128/78 06/28/25 20:00 70 18 165/0 H 06/28/25 19:35 65 167/88 H Pulse Ox O2 Del Method 06/29/25 07:16 97 Room Air 06/28/25 22:14 06/28/25 21:48 95 Room Air 06/28/25 21:28 97 Room Air 06/28/25 20:00 98 Room Air 06/28/25 19:35 Coding Level of Care Code 25726 SUB INP/OBS CARE MIN Diagnoses Constipation, unspecified constipation type K59.00 Constipation type: unspecified constipation type Intractable nausea R11.0 Chronic kidney disease (CKD), stage IV (severe) N18.4 Pyuria R82.81 (1) Constipation Constipation type: unspecified constipation type Qualified Code(s): K59.00 - Constipation, unspecified
[2025-06-29 09:38] LABS: Anion Gap 7.0 (3-11); Blood Urea Nitrogen 24.0 mg/dl (6-23); Calcium 9.4 mg/dl (8.6-10.3); Carbon Dioxide 24.0 mmol/L (21-32); Chloride 113.0 mmol/L (98-107); Creatinine Clr Calc Pharmacy 24.0 ml/min; Glucose 96.0 mg/dl (70-99(Fasting)); Potassium 3.5 mmol/L (3.5-5.1); Sodium 144.0 mmol/L (136-145)
--- NOTE | 2025-06-29 13:24 | Nuclear Medicine Report ---
NM gastric emptying study CLINICAL HISTORY: Persistent nausea, progressive early satiety. TECHNIQUE: After the oral ingestion of the meal consisting of egg substitute labeled with 1.0 mCi te chnetium-99m sulfur colloid, toast, jam and water, sequential anterior and posterior images were obta ined through 4 hours. Rersidual gastric activity was measured at several time points. COMPARISON: None FINDINGS: Retained gastric activity is 95% at 1 hour, 55% at 2 hours, and 3% at 4 hours, normal. IMPRESSION: Normal gastric emptying study. ACT 112: Negative or not required by law. The above report was generated using voice recognition software. It may contain grammatical, syntax o r spelling errors. Electronically signed by: Arnaldo Jimenez M.D. 06/29/2025 1:22 PM
[2025-06-29] MEDS: LOSARTAN POTASSIUM 50 MG TAB PO SCH (13:42)
[2025-06-29] MEDS: ATORVASTATIN 20 MG TAB PO SCH (13:43)
[2025-06-29] MEDS: METOCLOPRAMIDE HCL 5 MG TABLET PO SCH (20:06)
--- NOTE | 2025-06-30 07:10 | Hospitalist Progress Note ---
Date of Service June 30, 2025 Assessment & Plan (1) Constipation: (2) Intractable nausea: (3) Chronic kidney disease (CKD), stage IV (severe): (4) Pyuria: Plan In summary this is a 74-year-old female who presents with persistent nausea, unintentional weight loss consequential of poor oral intake, and early satiety admitted for progressive creatinine rise concerning for an acute kidney injury #Chronic Kidney Injury, Stage IV // Hypertension, uncontrolled most recent previous renal assessment prior to their recent presentations is from 03/2024 with a measure of 0.88; the patient's renal function since the beginning of 06/2025 has been abnormal with a recent trend of 2.09, 2.04 with an associated BUN elevation though not to the degree that would be concerning for uremic symptomatology; the patient's PTH is elevated at 105.6, suggestive of a c hronic component to the patient's kidney disease rather than this being an acute change, which is more consistent with the patient's clinical presentation; the patient has been persistently hypertensive during the hospitalization, they are prescribe losartan was held at the time of admission due to concern of potential acute kidney injury however even the presenting blood pressures are concerning that this is inadequate for treatment of their underlying hypertension, suggesting that there chronic kidney disease is consequential of progressive hypertensive nephrosclerosis - Discontinue losartan due to prior intolerance - Start nifedipine ER 30 mg p.o. daily Continue atorvastatin 20 mg p.o. daily Discontinue omeprazole Recommend establishing with nephrology upon discharge #Persistent nausea with early satiety // Unintentional weight loss Unclear cause at this time; patient does have a history of recurrent melanoma, may be a precipitant cause of an intermittent outlet obstruction though unlikely based on CT scan obtained by the emergency department provider; they do have some scattered stool accumulation throughout the colon which is unusual considering that their poor oral intake, constipation may be playing a role; there is a fair amount of substance within the stomach, more than what would be expected considering the patient's oral intake over the past 24 hours which was only a piece of toast in the morning on 06/28; Gastric motility study on 06/29 was normal Continue bisacodyl 5 mg p.o. at bedtime Continue Reglan 5 mg p.o. twice daily #Pyuria Present on admission; no associated symptoms, may be associated with the patient's primary cause of their acute kidney injury, though further testing is pending as detailed above; a reflex culture was performed by microbiology, pending at this time #Hypothyroidism Chronic condition; TSH normal at admission; continue home medication DVT PPx: Continue heparin 5000 U SQ every 12 hours Admission and Anticipated Discharge Date Admission Date: June 28, 2025 Subjective Ms. 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 on 06/28 due to progressive and persistent nausea associated with early satiety and unintentional weight loss. The patient states that this has been ongoing for approximately 4 weeks with an initial rapid progression of their symptoms and now a plateaued state. The patient was started on doxycycline by their PCP the week of 06/24 due to a positive Lyme titer, though this is not available for review today. The patient does note that their symptoms have neither worsened nor improved since initiation of doxycycline. No acute overnight events Review of Systems Review of Systems: Remaining review of constitutional, pulmonary, cardiovascular, gastrointestinal, genitourinary, musculoskeletal, neurologic, and integumentary systems was unremarkable except for pertinent positive and negative findings noted in the HPI above. Physical Exam Physical Exam: General: Adult female in no acute distress Vital Signs: reviewed HEENT: atraumatic, normocephalic; pupils equally round reactive to light; extraocular motions intact; mucous membranes moist Neck: no noted hepatojugular reflux nor flattening of the jugular veins Pulmonary: symmetric chest wall excursion; clear to auscultation bilaterally Cardiovascular: regular rate and rhythm without murmurs, rubs, or gallops; S1 and S2 normal; bilateral radial and posterior tibial pulse 2+; trace bilateral lower extremity edema distal to mid leg Gastrointestinal: soft, nondistended; normal bowel sounds present throughout all quadrants; nontender to superficial and deep palpation throughout the entire abdomen; no notable organomegaly nor peritoneal findings Neurologic: CN II-XII grossly intact; no discernible focal weakness nor paresthesias Skin: normal skin turgor; multiple prior surgical sites for melanoma excision including Mohs procedure on the anterior chest wall Results & Data Results & Data Vital Signs (Past 12 Hours) Vital Signs Temp Pulse Resp BP Pulse Ox O2 Del Method 06/29/25 23:15 36.7 C 66 18 165/78 H 96 Room Air Coding Level of Care Code 49280 SUB INP/OBS CARE 235MIN Diagnoses Constipation, unspecified constipation type K59.00 Constipation type: unspecified constipation type Intractable nausea R11.0 Chronic kidney disease (CKD), stage IV (severe) N18.4 Pyuria R82.81 (1) Constipation Constipation type: unspecified constipation type Qualified Code(s): K59.00 - Constipation, unspecified
[2025-06-30 07:16] VITALS: RESP 16; TEMP 98.6; O2SAT 94
[2025-06-30] MEDS: NIFEdipine EXTENDED REL 30 MG TABCR PO SCH (09:12)
[2025-06-30 11:59] VITALS: BP 176/87; PULSE 63
--- NOTE | 2025-06-30 13:36 | Electrocardiogram Report ---
Test Reason : Blood Pressure : */* mmHG Vent. Rate : 70 BPM Atrial Rate : 70 BPM P-R Int : 142 ms QRS Dur : 82 ms QT Int : 378 ms P-R-T Axes : -20 -16 -20 degrees QTcB Int : 408 ms Normal sinus rhythm Inferior infarct , age undetermined Possible Anterior infarct , age undetermined Abnormal ECG When compared with ECG of 19-Jun-2025 14:10, Inferior infarct is now Present T wave inversion now evident in Inferior leads Confirmed by Dorian Juares ([id number]) on 06/30/2025 1:36:08 PM Referred By: REFERRED SELF Confirmed By: Dorian Juares
--- NOTE | 2025-07-01 11:04 | Discharge Summary ---
Discharge Summary Date of Service July 01, 2025 Principal Dx & Hospital Course #1 = Principal Diagnosis (1) Constipation: (2) Intractable nausea: (3) Chronic kidney disease (CKD), stage IV (severe): (4) Pyuria: Plan In summary this is a 74-year-old female who presents with persistent nausea, unintentional weight loss consequential of poor oral intake, and early satiety admitted for progressive creatinine rise concerning for an acute kidney injury #Chronic Kidney Injury, Stage IV // Hypertension, uncontrolled most recent previous renal assessment prior to their recent presentations is from 03/2024 with a measure of 0.88; the patient's renal function since the beginning of 06/2025 has been abnormal with a recent trend of 2.09, 2.04 with an associated BUN elevation though not to the degree that would be concerning for uremic symptomatology; the patient's PTH is elevated at 105.6, suggestive of a chronic component to the patient's kidney disease rather than this being an acute change, which is more consistent with the patient's clinical presentation; the patient has been persistently hypertensive during the hospitalization, they are prescribe losartan was held at the time of admission due to concern of potential acute kidney injury however even the presenting blood pressures are concerning that this is inadequate for treatment of their underlying hypertension, suggesting that there chronic kidney disease is consequential of progressive hypertensive nephrosclerosis - Discontinue losartan due to prior intolerance - Start nifedipine ER 30 mg p.o. daily Continue atorvastatin 20 mg p.o. daily Discontinue omeprazole Recommend establishing with nephrology upon discharge #Persistent nausea with early satiety // Unintentional weight loss Unclear cause at this time; patient does have a history of recurrent melanoma, may be a precipitant cause of an intermittent outlet obstruction though unlikely based on CT scan obtained by the emergency department provider; they do have some scattered stool accumulation throughout the colon which is unusual considering that their poor oral intake, constipation may be playing a role; there is a fair amount of substance within the stomach, more than what would be expected considering the patient's oral intake over the past 24 hours which was only a piece of toast in the morning on 06/28; Gastric motility study on 06/29 was normal Continue bisacodyl 5 mg p.o. at bedtime Continue Reglan 5 mg p.o. twice daily #Pyuria Present on admission; no associated symptoms, may be associated with the patient's primary cause of their acute kidney injury, though further testing is pending as detailed above; a reflex culture was performed by microbiology, pending at this time #Hypothyroidism Chronic condition; TSH normal at admission; continue home medication DVT PPx: Continue heparin 5000 U SQ every 12 hours Admission HPI Per Admitting Provider Ms. 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 The patient states that this has been ongoing for approximately 4 weeks with an initial rapid progression of their symptoms and now a plateaued state. They endorse difficulty tolerating any oral intake with significant nausea but have had no episodes of emesis. They deny any associated fevers, chills, abdominal distention, increased frequency of eructation or passing flatus. They do note decreased frequency of their bowel movements as this condition has progressed however there has been no change in the con sistently of their stool. there is also been no significant change in their urinary frequency nor the quality of their urine. They did recently moved to a new home, which did precede the onset of the symptoms however the patient notes they have moved many times previously without any associated symptoms. This was a local moved, and other than this there has been no recent travel nor established exposures. The patient was started on doxycycline by their PCP the week of 06/24 due to a positive Lyme titer, though this is not available for review today. The patient does note that their symptoms have neither worsened nor improved since initiation of doxycycline. Discharge Exam General: Adult female in no acute distress Vital Signs: reviewed HEENT: atraumatic, normocephalic; pupils equally round reactive to light; extraocular motions intact; mucous membranes moist Neck: no noted hepatojugular reflux nor flattening of the jugular veins Pulmonary: symmetric chest wall excursion; clear to auscultation bilaterally Cardiovascular: regular rate and rhythm without murmurs, rubs, or gallops; S1 and S2 normal; bilateral radial and posterior tibial pulse 2+; trace bilateral lower extremity edema distal to mid leg Gastrointestinal: soft, nondistended; normal bowel sounds present throughout all quadrants; nontender to superficial and deep palpation throughout the entire abdomen; no notable organomegaly nor peritoneal findings Neurologic: CN II-XII grossly intact; no discernible focal weakness nor paresthesias Skin: normal skin turgor; multiple prior surgical sites for melanoma excision including Mohs procedure on the anterior chest wall Discharge Plan Discharge Items Patient Disposition: Home - Self-Care Reason For Visit: ACUTE KIDNEY INJURY Discharge Diagnosis: Intractable nausea // Slow transit constipation Condition on Discharge: Good Activity: As commented below Non-emergency contact: Primary Care Provider Call non-emergency contact if: you have any medication questions and your symptoms worsen Follow-up/Referrals: Guru Posadas MD [Physician] - (Establish care; new CKD 4) Jose Lott MD [Physician] - (Establish care after hospitalization; recent move to [facility]) Bre Logan, OTR [Primary Care Provider] - Diet: Low Potassium (2gm) and Low Fat Fluids: 1800ml (7 cups) Addtl Attending Provider Instructions: You were admitted to [facility] for persistent nausea and poor oral intake. There was initial concern for potential acute kidney injury, however based on laboratory assessment during her hospitalization it appears to be a chronic change in your renal function. At this time you have a diagnosis of CKD stage IV, likely consequential of long-term high blood pressure. Due to your previous intolerance of losartan, this medication has been discontinued and instead started nifedipine ER 30 mg p.o. daily. Also, for additional preventative care, you have been started on atorvastatin 20 mg p.o. daily. We have discontinued omeprazole as this was having little benefit, if any, to your presenting symptomatology and these medications can cause long-term complications with regard to kidney disease. You have been provided a referral to a local nephrology group for establishing care after hospitalization. With regard to your persistent nausea, a gastric motility study on 06/29 was performed without abnormality; a CT scan obtained in the emergency department at your initial presentation did reveal a significant amount of stool throughout the colon, more than what would be expected given your recent poor oral intake. After starting a promotility and antiemetic medication, Reglan, your symptoms have improved with improved oral intake as well. Also recommend maintaining a regular bowel regimen including MiraLAX one half capful in 8 ounces of noncarbonated nondairy fluid daily, adjusting this dose by one half capful every 3 to 4 days to maintain and easily passed bowel movement daily. Can also consider continuing bisacodyl 5 mg p.o. at bedtime as a stimulant when needed. Thank you for choosing [facility] as your healthcare provider. Pending Studies at Discharge: No Stand-Alone Forms: My [facility] Medications and DC Order Prescriptions: New nifedipine [Procardia XL] 30 mg Tablet Extended Release 24hr 30 mg PO QAM 30 Days Qty: 30 0RF atorvastatin 20 mg Tablet 20 mg PO QAM 30 Days Qty: 30 0RF metoclopramide HCl 5 mg Tablet 5 mg PO BID 21 Days Qty: 42 0RF Continued levothyroxine 75 mcg Capsule 75 mcg PO QAM Caltrate 600 plus D 600 mg (1,500 mg)-800 unit Tablet,Chewable 0 tab PO BID Rx Instructions: currently on hold hydroxyzine HCl 25 mg tablet 25 mg PO TID PRN (Reason: anxiety) Qty: 14 0RF doxycycline monohydrate 100 mg capsule 100 mg PO BID Rx Instructions: for 28 days fluoxetine [Prozac] 20 mg Capsule 20 mg PO DAILY Discontinued multivitamin Tablet 1 tab PO QAM PRN (Reason: during winter) Probiotic 3 billion cell Capsule 3,000 mmu cells PO QAM omeprazole 40 mg capsule,delayed release(DR/EC) 40 mg PO BID losartan 25 mg tablet 12.5 mg PO HS Patient Comments: per pt she does half a tablet paroxetine HCl [Paxil] 20 mg Tablet 20 mg PO DAILY Discharge Orders: Discharge Order (Routine); Ordered 06/30/25 Ordered By: Brandon De Dios/Other Patient Handouts: Treating Constipation, Eating a High-Fiber Diet, Monitoring Kidney Health, Hypertension and Kidney Disease, How the Colon Works Admission Data Admit Date/Time: 06/28/25 18:05 Attending Provider: Brandon Arriaga Admit Provider: Brandon Arriaga Primary Care Provider: Bre Logan Other Interventions: Discharge Summary Assessment (RN) Last Done: 06/30/25 11:58 Hospital Stay Data Diagnostic Imagining Performed 06/28/25 16:22 CT abd pelvis wo con Stat Pending Results Patient Have Any Pending Studies at Discharge: No Discharge Instructions Given to Patient (Per Discharging Provider) You were admitted to [facility] for persistent nausea and poor oral intake. There was initial concern for potential acute kidney injury, however based on laboratory assessment during her hospitalization it appears to be a chronic change in your renal function. At this time you have a diagnosis of CKD stage IV, likely consequential of long-term high blood pressure. Due to your previous intolerance of losartan, this medication has been discontinued and instead started nifedipine ER 30 mg p.o. daily. Also, for additional preventative care, you have been started on atorvastatin 20 mg p.o. daily. We have discontinued omeprazole as this was having little benefit, if any, to your presenting symptomatology and these medications can cause long-term complications with regard to kidney disease. You have been provided a referral to a local nephrology group for establishing care after hospitalization. With regard to your persistent nausea, a gastric motility study on 06/29 was performed without abnormality; a CT scan obtained in the emergency department at your initial presentation did reveal a significant amount of stool throughout the colon, more than what would be expected given your recent poor oral intake. After starting a promotility and antiemetic medication, Reglan, your symptoms have improved with improved oral intake as well. Also recommend maintaining a regular bowel regimen including MiraLAX one half capful in 8 ounces of noncarbonated nondairy fluid daily, adjusting this dose by one half capful every 3 to 4 days to maintain and easily passed bowel movement daily. Can also consider continuing bisacodyl 5 mg p.o. at bedtime as a stimulant when needed. Thank you for choosing [facility] as your healthcare provider. Total Time Total Time Spent Total Time Spent (In Minutes): 60 Coding Level of Care Code 61906 INP/OBS DISCH >30 MIN Diagnoses Constipation, unspecified constipation type K59.00 Constipation type: unspecified constipation type Intractable nausea R11.0 Chronic kidney disease (CKD), stage IV (severe) N18.4 Pyuria R82.81 Time Spent (min) 60
== END 2025-06-30 13:45 | disposition home or self-care (01) ==
LOC: EDINP 14:14 → ED 14:14 → 3N 21:28